=== PATIENT | female | born 1975 | race Native Hawaiian/Other Pacific Islander ===

== ENCOUNTER 2017-06-22 12:20 | Emergency (ER) | payer SELFPAY ==
--- NOTE | 2017-06-22 14:01 | Emergency Department Report ---
ED Fall HPI - General Chief Complaint: Fall Stated Complaint: BACK PAIN Time Seen by Provider: 06/22/17 13:09 Source: patient, family, EMS Mode of arrival: Stretcher Limitations: Physical Limitation - History of Present Illness Initial Comments: Patient he reports that she slipped on a size of schmid and fell at work. She says she injured her left lower back and hip down to her knee. Pain is 9 out of 10 and achy. Denies any head injury, headache or neck pain. Denies numbness or tingling to extremities or any loss of bowel or bladder function. Has any fever or chills. Denies any urinary burning frequency or urgency MD Complaint: fall -: This afternoon Fall From: standing When Fall Occurred: 1 hour KITCHEN HAND Fall Witnessed: yes, by bystander Place Fall Occurred: work Loss of Consciousness: none Prolonged Down Time?: no Symptoms Prior to Fall: none Location: back, pelvis (left hip) Location - Extremities: Left: Thigh (pain radiating down to the left knee) Severity: severe Severity scale (0 -10): 9 Quality: aching Context: tripped/slipped Associated Symptoms: unable to walk. denies: headache, neck pain, numbness, weakness, chest paint, shortness of breath, abdominal pain, hematuria, lightheaded, vertigo, confusion - Related Data Home Medications Medication Instructions Recorded Confirmed Last Taken Acetaminophen [Tylenol] 325 mg PO PRN 10/03/13 10/03/13 10/03/13 Previous Rx's Medication Instructions Recorded Last Taken Type Acetaminophen/Codeine [Tylenol #3] 1 tab PO Q6H PRN #12 tab 10/04/13 Unknown Rx Cyclobenzaprine [Flexeril] 10 mg PO TID PRN #15 tablet 06/22/17 Unknown Rx Ibuprofen [Motrin] 600 mg PO Q8H PRN #15 tablet 06/22/17 Unknown Rx Allergies Allergy/AdvReac Type Severity Reaction Status Date / Time No Known Allergies Allergy Unverified 10/03/13 18:37 ED Review of Systems ROS: Stated complaint: BACK PAIN Other details as noted in HPI Comment: All other systems reviewed and negative Constitutional: no symptoms reported Eyes: denies: eye pain, eye discharge, vision change ENT: denies: congestion Respiratory: no symptoms reported Cardiovascular: denies: chest pain, palpitations, dyspnea on exertion, edema, syncope, paroxysmal nocturnal dyspnea Gastrointestinal: denies: abdominal pain, nausea, vomiting Genitourinary: denies: urgency, dysuria, frequency, hematuria, discharge, abnormal menses Musculoskeletal: back pain, arthralgia. denies: joint swelling, myalgia Skin: denies: rash Neurological: abnormal gait. denies: headache, weakness, numbness, paresthesias , confusion, vertigo ED Past Medical Hx - Past Medical History Previous Medical History?: Yes Hx Asthma: Yes - Surgical History Past Surgical History?: No Additional Surgical History: 2004, tumor removal stomach 2016 - Family History Family history: no significant - Social History Smoking Status: Never Smoker Substance Use Type: None - Medications Home Medications: Home Medications Medication Instructions Recorded Confirmed Last Taken Type Acetaminophen [Tylenol] 325 mg PO PRN 10/03/13 10/03/13 10/03/13 History Acetaminophen/Codeine [Tylenol #3] 1 tab PO Q6H PRN #12 tab 10/04/13 Unknown Rx Cyclobenzaprine [Flexeril] 10 mg PO TID PRN #15 tablet 06/22/17 Unknown Rx Ibuprofen [Motrin] 600 mg PO Q8H PRN #15 tablet 06/22/17 Unknown Rx ED Physical Exam - General Limitations: No Limitations General appearance: alert, in no apparent distress - Head Head exam: Present: atraumatic, normocephalic, normal inspection - Expanded Head Exam Expanded Head exam: Absent: laceration, abrasion, contusion, hematoma, racoon eyes, barrios's sign, general tenderness, tenderness of temporal artery, CSF rhinorrhea , CSF otorrhea - Eye Eye exam: Present: normal appearance, PERRL, EOMI. Absent: nystagmus, periorbital swelling, periorbital tenderness Pupils: Present: normal accommodation - ENT ENT exam: Present: normal exam, normal orophraynx, mucous membranes moist. Absent: TM's normal bilaterally, normal external ear exam - Neck Neck exam: Present: normal inspection, full ROM. Absent: tenderness, meningismus, lymphadenopathy - Expanded Neck Exam Expanded Neck exam: Present: other (No C-spine tenderness). Absent: tenderness, midline deformity, anterior neck swelling, tracheal deviation - Respiratory Respiratory exam: Present: normal lung sounds bilaterally. Absent: respiratory distress, chest wall tenderness - Cardiovascular Cardiovascular Exam: Present: regular rate, normal rhythm, normal heart sounds. Absent: systolic murmur, diastolic murmur - GI/Abdominal GI/Abdominal exam: Present: soft, normal bowel sounds. Absent: distended, tenderness, guarding, rebound, rigid, organomegaly, mass, bruit, pulsatile mass - Extremities Exam Extremities exam: Present: normal inspection, normal capillary refill, other ( pulses +2 toilet extremities, no neurovascular compromise. No clubbing cyanosis or edema to extremities.). Absent: full ROM (Limited Range of motion to the left hip and thigh due to injury and pain), tenderness, pedal edema, joint swelling, calf tenderness - Expanded Lower Extremity Exam Left Hip exam: Present: normal inspection, full ROM, pelvic stability. Absent: tenderness, swelling, abrasion, laceration, ecchymosis, deformity, crepidus, dislocation, erythema, external rotation, internal rotation, shortening Upper Leg exam: Present: normal inspection, full ROM. Absent: tenderness, swelling, abrasion, laceration, ecchymosis, deformity, crepidus, dislocation, erythema Knee exam: Present: normal inspection, full ROM, full knee extension. Absent: tenderness, swelling, abrasion, laceration, ecchymosis, deformity, crepidus, dislocation, erythema, effusion, pain w/ pronation/supination, posterior draw sign, pain/laxity with valgus, pain/laxity with varus Lower Leg exam: Present: normal inspection, full ROM. Absent: tenderness, swelling, abrasion, laceration, ecchymosis, deformity, crepidus, dislocation, erythema, palpable cord, Lucas's sign Ankle exam: Present: normal inspection, full ROM. Absent: tenderness, swelling , abrasion, laceration, ecchymosis, deformity, crepidus, dislocation, erythema Foot/Toe exam: Present: normal inspection, full ROM. Absent: tenderness, swelling, abrasion, laceration, ecchymosis, deformity, crepidus, dislocation, erythema, amputation, puncture wound, foreign body, calcaneal tenderness, tenderness at base of 5th metatarsal, nail avulsion, subungual hematoma Neuro vascular tendon exam: Present: no vascular compromise. Absent: pulse deficit, abnormal cap refill, motor deficit, sensory deficit, tendon deficit Gait: Positive: observed and limited by pain (patient able to ambulate after pain medication) - Back Exam Back exam: Present: normal inspection, full ROM, paraspinal tenderness (left paraspinal tenderness). Absent: tenderness, CVA tenderness (R), CVA tenderness (L), muscle spasm, vertebral tenderness, rash noted - Expanded Back Exam Expanded Back exam: Absent: saddle anesthesia Back exam: Negative Straight Leg Raising: Left, Right - Neurological Exam Neurological exam: Present: alert, oriented X3, abnormal gait (abnormal gait to the left lower extremity. Patient is limping. Due to injury), motor sensory deficit (patient with full range of motion to all extremities and she is low to ambulate due to left lower extremity injury and pain. Strength the left lower extremity diminished to 4/5. Due to left hip and thigh pain), reflexes normal - Expanded Neurological Exam Expanded Neurological exam: Absent: innattentive, memory loss-remote event, memory loss- recent event, ataxia, receptive aphasia, expressive aphasia, total aphasia, tremor, protecting the airway Patient oriented to: Present: person, place, time Speech: Present: fluid speech Cranial nerves: EOM's Intact: Normal, Gag Reflex: Normal, Tongue Deviation: Normal, Nystagmus: Normal, Facial Sensation: Normal Cerebellar function: Romberg: Normal Upper motor neuron: Pronator Drift: Normal, Sensory Extinction: Normal Sensory exam: Upper Extremity Light Touch: Normal, Upper Extremity Temperature: Normal, UE 2 Point Discrimination: Normal, Lower Extremity Light Touch: Normal, Lower Extremity Temperature: Normal, LE 2 Point Discrimination: Normal Motor strength exam: RUE: 5, LUE: 5, RLE: 5, LLE: 4 (4/5 strength in left lower extremity) DTR: bicep (R): 2+, bicep (L): 2+, tricep (R): 2+, tricep (L): 2+, knee (R): 2+ , knee (L): 2+, ankle (R): 2+, ankle (L): 2+ Best Eye Response ([place]): (4) open spontaneously Best Motor Response ([place]): (6) obeys commands Best Verbal Response ([place]): (5) oriented Dee Total: 15 - Psychiatric Psychiatric exam: Present: normal affect, normal mood - Skin Skin exam: Present: warm, dry, intact, normal color. Absent: rash ED Course Vital Signs 06/22/17 06/22/17 06/22/17 12:30 13:30 14:17 Temperature 97.8 F Pulse Rate 75 Respiratory 20 18 16 Rate Blood Pressure 119/78 Blood Pressure [Left] O2 Sat by Pulse 98 Oximetry 06/22/17 14:52 Temperature 98.5 F Pulse Rate 65 Respiratory 20 Rate Blood Pressure Blood Pressure 127/73 [Left] O2 Sat by Pulse 97 Oximetry - Reevaluation(s) Reevaluation #1: 06/22/17 16:10 Given [place] 5/325 2 tablets, Toradol 30 mg IV and Zofran 4 mg IV and emergency room. She voiced relief of pain and she is able to ambulate with minimal difficulties. ED Medical Decision Making - Radiology Data Radiology results: report reviewed Xray of lumbar sacral area shows mild lumbar spondylosis mild but no acute fracture or subluxation XR left hip reveals no fracture or dislocation. Summary of left femur reveal no fracture or dislocation. - Medical Decision Making ED course: Patient here brought to hospital by ambulance accompanied by her family member and reports that she slipped on floor at work and injured her left back and left hip and femur radiating down her left knee. X-ray of left hip reveal no acute fracture or dislocation .x-ray of left femur reveal no acute fracture dislocation. X-ray of the lumbar sacral spine reveal spondylosis lumbar spine area. Patient knee exam was normal. She is neurologically intact except decrease in strength to lower extremity at 4/5. I explained to patient her x-ray results and told her that she has mild arthritis in her lower back. She does have paraspinal tenderness otherwise her back exam is normal. Patient was given Toradol 30 mg IV, Zofran 4 g IV and [place] 5/325 2 tablets by mouth in the emergency room which she voiced relief of pain. Patient able to ambulate with minimal pain after pain medication. Patient discharged home with her family to follow up with orthopedic doctor in 3 days.Discharged home with prescription for Flexeril and Motrin. Critical care attestation.: If time is entered above; I have spent that time in minutes in the direct care of this critically ill patient, excluding procedure time. ED Disposition Clinical Impression: Arthralgia of multiple sites Accidental fall Qualifiers: Encounter type: initial encounter Qualified Code(s): W19.XXXA - Unspecified fall, initial encounter Degenerative disk disease Qualifiers: Spinal region: lumbar Qualified Code(s): M51.36 - Other intervertebral disc degeneration, lumbar region Disposition: DC-01 TO HOME OR SELFCARE Is pt being admited?: No Does the pt Need Aspirin: No Condition: Stable Instructions: Arthralgia (ED), Fall Prevention (ED), Musculoskeletal Pain (ED) , RICE Therapy (ED) Additional Instructions: Please follow up with orthopedic doctor in [address] or operate heavy machinet while taking flexeril as this causes drowsines Rest for 7e hours RICE protocol Prescriptions: Cyclobenzaprine [Flexeril] 10 mg PO TID PRN #15 tablet PRN Reason: Muscle Spasm Ibuprofen [Motrin] 600 mg PO Q8H PRN #15 tablet PRN Reason: Pain Referrals: JOSE DAVID PHIPPS MD [Staff Physician] - 06/26/17 PRIMARY CAREMD [Primary Care Provider] - 06/23/17 Forms: Accompanied Note, Work/School Release Form(ED) Print Language: SAO TOMEAN
[2017-06-22] MEDS ORDERED: PERCOCET 5/325 PO ONE (14:04)
[2017-06-22] MEDS ORDERED: TORADOL IV ONE (14:04)
[2017-06-22] MEDS ORDERED: ZOFRAN IV ONE (14:04)
[2017-06-22 14:53] VITALS: BP 127/73
--- NOTE | 2017-06-22 15:01 | XRay Report ---
LEFT HIP, 2 views: History: Left hip pain after fall. The bony architecture is intact without evidence of fracture or dislocation. No significant soft tissue abnormality is seen. IMPRESSION: Normal left hip.
--- NOTE | 2017-06-22 15:01 | XRay Report ---
LEFT HUMERUS: History: Left arm pain after fall. AP and lateral views of the humerus demonstrate normal mineralization and contours for this patient's age. No destructive changes are noted and the adjacent soft tissues are normal. IMPRESSION: Normal left humerus.
--- NOTE | 2017-06-22 15:02 | XRay Report ---
LUMBOSACRAL SPINE, 3 VIEWS: History: Back pain Findings: The vertebral bodies, disk spaces and posterior elements are intact. No compression deformity or malalignment. Mild to moderate facet arthropathy is identified at the lowest 3 levels. The SI joints are symmetric and unremarkable. Impression: Mild lumbar spondylosis. No evidence for acute injury to the lumbar spine.
== END 2017-06-22 16:38 | disposition home or self-care (01) ==
LOC: ED 12:20
DX: M51.36 Other intervertebral disc degeneration, lumbar region (principal)
CPT/HCPCS: 72100; 73060; 73502; 96374; 96375; 99284; J1885; J2405